=== PATIENT | female | born 1965 | race Caucasian/White ===

== ENCOUNTER 2017-05-26 22:44 | Emergency (ER) | payer BC ==
--- NOTE | 2017-05-27 03:05 | ED ---
GI/ HPI - HPI Summary HPI Summary: Pt here w/ tampon lodged in vaginal canal for a few hours. Attempted to remove at home on her own and with assistance from spouse but was not successful. Denies pain, fever, chills. Simply here for removal. 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 Lives: With Family Alcohol Use: Occasionally Hx Substance Use: No Substance Use Type: Reports: None Hx Tobacco Use: No Smoking Status (MU): Never Smoked Tobacco Review of Systems Constitutional: Negative Negative: Fever, Chills, Fatigue Gastrointestinal: Negative Negative: Abdominal Pain, Vomiting, Diarrhea, Nausea Positive: see HPI Psychological: Normal All Other Systems Reviewed And Are Negative: Yes Physical Exam Triage Information Reviewed: Yes Vital Signs On Initial Exam: Initial Vitals Temp Pulse Resp BP Pulse Ox 98.6 F 93 18 160/80 97 05/26/17 22:57 05/26/17 22:57 05/26/17 22:57 05/26/17 22:57 05/26/17 22:57 Vital Signs Reviewed: Yes Appearance: Positive: Well-Appearing, No Pain Distress, Well-Nourished Skin: Positive: Warm, Dry Head/Face: Positive: Normal Head/Face Inspection Eyes: Positive: Normal, EOMI ENT: Positive: Hearing grossly normal, Pharynx normal - mucosa moist Respiratory/Lung Sounds: Positive: Breath Sounds Present Cardiovascular: Positive: RRR Pelvic Exam: Positive: external exam normal, active bleeding - appears to be menstrual bleeding - pt is on her period now, other - tampon identified in vaginal canal; no lesions/no trauma Musculoskeletal: Positive: Normal, Strength/ROM Intact Neurological: Positive: Normal, Sensory/Motor Intact, Alert, Oriented to Person Place, Time, CN Intact II-III Psychiatric: Positive: Normal Procedures - Procedure Summary Procedure Summary: Retained tampon removed from vaginal canal using speculum and sterile forceps - pt tolerated well Diagnostics - Vital Signs Vital Signs Temp Pulse Resp BP Pulse Ox 05/27/17 01:39 98.4 F 89 18 149/77 98 05/26/17 22:57 98.6 F 93 18 160/80 97 - Laboratory Lab Statement: Any lab studies that have been ordered have been reviewed, and results considered in the medical decision making process. GIGU Course/Dx - Diagnoses Provider Diagnoses: Retained tampon Discharge - Discharge Plan Condition: Stable Disposition: HOME Patient Education Materials: Vaginal Foreign Body (ED) Referrals: [facility] [place] [facility] [Outside] Additional Instructions: Follow-up with PCP/COAL PULVERIZING OPERATOR if you develop vaginal pain or discomfort, fever, chills , or purulent discharge
[2017-05-27 03:21] VITALS: BP 150/90
== END 2017-05-27 03:19 | disposition home or self-care (01) ==
LOC: ED 22:44
DX: T19.2XXA Foreign body in vulva and vagina, initial encounter (principal); X58.XXXA Exposure to other specified factors, initial encounter; Y92.9 Unspecified place or not applicable
CPT/HCPCS: 99282